=== PATIENT | male | born 1955 | race Caucasian/White ===

== ENCOUNTER 2022-11-29 06:22 | Outpatient (REF) | payer OTHER, SELFPAY ==
[2022-11-29 07:27] LABS: Hematocrit 43.2 % (42.0-52.0); Hemoglobin 14.6 g/dl (14.0-18.0); Mean Corpuscular HGB Conc 33.8 g/dl (31.0-36.0); Mean Corpuscular Hemoglobin 31.2 pg (27.0-33.0); Mean Corpuscular Volume 92.3 fL (80.0-98.0); Mean Platelet Volume 9.2 fL (9.4-12.4); Platelet Count 265 X10*3/uL (160-400); Red Blood Count 4.68 X10*6/uL (4.60-5.80); Red Cell Distribution Width 12.5 % (11.0-16.0); White Blood Count 6.4 X10*3/uL (4.8-10.8)
[2022-11-29 07:46] LABS: Alanine Aminotransferase 13 U/L (0-40); Albumin Level 4.2 g/dL (3.5-5.0); Alkaline Phosphatase 58 U/L (39-117); Anion Gap 11 (12-20); Aspartate Amino Transferase 15 U/L (5-37); Bilirubin Total 0.4 mg/dL (0.0-1.0); Blood Urea Nitrogen 21 mg/dL (9-16); Calcium 9.3 mg/dL (8.4-10.2); Carbon Dioxide 27 mmol/L (22-29); Chloride 109 mmol/L (96-108); Estimated Glomerular Filt Rate > 60; Glucose Fasting 114 mg/dL (60-99); Potassium 4.7 mmol/L (3.3-5.1); Sodium 142 mmol/L (135-145); Total Protein 6.9 g/dL (6.5-8.0)
[2022-11-29 08:03] LABS: Prostate Specific Antigen Scr 3.41 ng/mL (<0.05-4.0)
[2022-11-30 17:48] LABS: HCV Log PCR <1.18 NOT DETECTED Log IU/mL (NOT DETECTED); HepC Viral Load <15 NOT DETECTED IU/mL (NOT DETECTED)
== END 2022-11-29 06:23 | disposition home or self-care (01) ==
LOC: HO.LAB 06:22
PROVIDERS: PCP Physician Assistant; Visit Provider Physician Assistant
DX: Z13.1 Encounter for screening for diabetes mellitus (principal); Z12.5 Encounter for screening for malignant neoplasm of prostate; Z86.19 Personal history of other infectious and parasitic diseases
CPT/HCPCS: 36415; 80053; 84153; 85027; 87522

== ENCOUNTER 2023-02-14 08:36 | Outpatient (AMB) | payer OTHER, SELFPAY ==
--- NOTE | 2023-02-14 08:53 | MHC.PC.OV ---
Vital Signs 02/14/23 08:54 Height 5 ft 11 in Weight 169 lb 6 oz BMI 23.6 BP 120/60 Blood Pressure Location Lt brachial Position Sitting Pulse 60 Pulse Source Pulse Oximeter Pulse Oximetry (%) 97 Oxygen Delivery Method Room Air Intake Visit Reasons: Annual Exam Intake Note: Patient is here today for a physical. 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 policy Accompanied by: Self / Same As Patient Allergies No Known Allergies Allergy (Verified 02/14/23 09:31) Medication List - Last Reconciled 02/14/23 by Joo Reyez PA-C ibuprofen 600 mg PO DAILY Tobacco use date assessed: 02/14/23 Fall risk assessment: No Falls in past year Last assessed Fall Risk: 02/14/23 Dental Screening Dental Screen Date: 02/14/23 Did you have a dental visit in the last 12 months?: No Did you have a dental problem in the last 6 months where you did not have access to dental care?: No Was dental information given to patient?: No HPI Annual Exam HPI Details Patient is a 67-year-old male here today for routine annual physical Has a past medical history of hepatitis C that was treated and has cleared the virus. . Labs--> Most recently noted elevated fasting blood sugar. He did report some dietary indiscretion and has been working on reducing his carbs and sugar in his diet. .. History of hepatitis C: Most recent labs showing undetectable hepatitis-C viral load. Colon cancer screening; Willing to do cologaurd- has Cologuard box at home. Vaccines: Up-to-date with COVID vaccine, UTD pneumonia vaccine, shingles vaccine up-to-date with tetanus vaccine Laboratory Tests 11/29/22 06:48 Hgb 14.6 Creatinine 0.88 Fasting Glucose 114 H PSA Screen 3.41 [facility] Surgical History History of dental surgery History of hernia surgery Family History Sister ESRD (end stage renal disease) Social History Housing: Condominium Alcohol intake: current Alcohol intake frequency: a few times a month Alcohol type: beer Patient Tobacco Use Status: Former Tobacco user Quit Date: 1986 e-Cigarette/Vaping Use: Never Used Second Hand Smoke Exposure: No service: Yes Current occupational status: employed Current occupation: [employer] Cognitive needs: No Hearing needs: No Vision needs: Yes (glasses) Questionnaire Thrive Questionnaire Date Thrive assessed: 08/09/22 CARLITOS-7 AMB Questionnaire CARLITOS-7 Date CARLITOS - 7 assessed: 08/09/22 Source: Developed by Drs. Hua Ibrahim, Stella Shell, Ryne Padgett and colleagues, with an educational pat from [employer]. Review of Systems Const Denies body aches, Denies chills, Denies excessive sweating, Denies fatigue, Denies fever(s) and Denies headache(s) Eyes Denies blurry vision ENT Denies dysphagia, Denies vertigo, Denies dizziness, Denies headache(s), Denies hearing loss and Denies tinnitus Card Denies chest pain, Denies chest pain with activity, Denies syncope, Denies irregular heart rhythm and Denies dyspnea Resp Denies chest congestion, Denies cough, Denies hemoptysis, Denies dyspnea and Denies wheezing GI Denies abdominal pain, Denies melena, Denies hematochezia, Denies coffee ground emesis, Denies dysphagia, Denies diarrhea, Denies nausea and Denies vomiting Denies difficulty urinating, Denies dysuria, Denies urinary frequency, Denies urinary hesitancy and Denies urinary urgency Musc Denies arthralgias, Denies limited range of motion, Denies muscle cramps and Denies muscle weakness Skin/Breast Denies rash and Denies skin ulcer Neuro Denies Abnormal speech present, Denies confusion, Denies vertigo, Denies dizziness, Denies syncope, Denies headache(s), Denies memory loss and Denies seizure-like activity Psych Denies anxiety, Denies confusion, Denies depression, Denies memory loss, Denies panic attacks and Denies paranoia Endo Denies excessive sweating, Denies fatigue, Denies flushing, Denies polydipsia and Denies polyuria Aller/Immun Denies wheezing Physical exam (Primary Care) Vital Signs: Last Vital Signs Pulse 60 02/14/23 08:54 BP 120/60 02/14/23 08:54 Pulse Ox 97 02/14/23 08:54 Oxygen Delivery Method Room Air 02/14/23 08:54 BMI result Body Mass Index 23.6 Tobacco/Smoking Status: Tobacco use Status Tobacco use date assessed 02/14/23 02/14/23 09:11 Patient Tobacco Use Status Former Tobacco user 02/14/23 09:11 e-Cigarette/Vaping Use Never Used 02/14/23 09:11 Thrive Assessment: Date of Thrive Assessment Date Thrive assessed 08/09/22 02/14/23 09:11 Const General: cooperative, comfortable, no acute distress, alert and awake; No confusion Orientation/consciousness: oriented to person, oriented to place, patient oriented x3 and No confusion HENMT Head: Yes normocephalic Ears: external ears normal and TM's normal bilaterally Face and sinus: No sinus tenderness Mouth: Normal oral and palatal mucosa present and tongue normal Teeth and gingiva: dentition normal and gingiva normal Throat: Yes posterior oropharynx normal, Yes tonsils normal and Yes uvula midline Eyes Conjunctivae: conjunctivae normal Sclerae: sclerae normal Pupils: Equal, round and reactive pupils present EOM: EOMs intact bilaterally Direct Ophthalmoscopy: No no photophobia Neck Neck: Yes no lymphadenopathy, No tender and Yes no JVD Thyroid: Thyroid normal Carotids: no bruits Chest Chest palpation & inspection: no tenderness Resp Effort & Inspection: normal respiratory effort, no audible wheezes, not labored and no stridor Auscultation: no crackles, no rales, no rhonchi and no wheezes Cardio Jugular venous distension: no JVD Rate: regular rate, not bradycardic and not tachycardic Rhythm: regular rhythm Bruits: no carotid bruits Peripheral pulses: Peripheral pulses 2+ throughout GI Inspection: Yes normal to inspection, No abdominal wall ecchymosis and No visible herniation Palpation (GI): Soft to palpation, nontender, no guarding, not rigid and No hepatosplenomegaly present Auscultation: normoactive bowel sounds General: Yes no CVA tenderness Back/Spine/Pelvis Back: no CVA tenderness and No back tenderness Cervical Spine: cervical ROM normal Thoracic/Lumbar Spine: thoracic and lumbar spine normal to inspection, straight leg raise negative bilaterally, No thoraco-lumbar ROM limited and No lumbar spinal tenderness Skin Lesions: no lesions Rashes: no rashes Wounds: no wounds Neuro General: oriented to person, oriented to place, patient oriented x3, CN's II-XI intact bilaterally and No confusion Cranial nerves: Yes Equal, round and reactive pupils present and Yes Normal accommodation reflex present Cognition (Neuro): normal cognition Speech: No Abnormal speech present Gait exam (Neuro): Normal gait present Motor exam (neuro): 5/5 motor strength present throughout Extrem Right upper extremity: full ROM; no cyanosis Left upper extremity: full ROM; no cyanosis Right lower extremity: no edema Left lower extremity: no edema Psych Appearance: grossly normal Mental Status: mental status grossly normal Affect: normal affect Attitude: cooperative Thought process: Normal thought process present Assessment and Plan Assessment & Plan (1) Annual physical exam: Code(s): Z00.00 - Encounter for general adult medical examination without abnormal findings (2) History of hepatitis C: Code(s): Z86.19 - Personal history of other infectious and parasitic diseases Plan: Most recent hepatitis C viral load undetectable (3) Colon cancer screening: Code(s): Z12.11 - Encounter for screening for malignant neoplasm of colon Plan: Has Cologuard at home. He promises to do this in near future. (4) Impaired glucose metabolism: Code(s): R73.09 - Other abnormal glucose Plan: Most recent fasting labs showing fasting blood sugar 114. Will be working on low carbohydrate diet. Will recheck fasting sugar and A1c to ensure normal. Orders: Orders Prostate Specific Antigen Scr 02/14/23 R73.09 - Other abnormal glucose, Z12.5 - Encounter for screening for malignant neoplasm of prostate Comprehensive [place]. Panel Fast 02/14/23 R73.09 - Other abnormal glucose Hemoglobin A1c 02/14/23 R73.09 - Other abnormal glucose Coding Level of Care Code Est Pt Prev Care >65y(51927) Diagnoses Annual physical exam Z00.00 History of hepatitis C Z86.19 Colon cancer screening Z12.11 Impaired glucose metabolism R73.09
[2023-02-14 08:54] VITALS: BP 120/60; PULSE 60; O2SAT 97; BMI 23.6
== END 2023-02-14 09:50 | disposition home or self-care (01) ==
LOC: HO.HMGH 08:36
PROVIDERS: PCP Physician Assistant; Visit Provider Physician Assistant
DX: Z00.00 Encounter for general adult medical examination without abnormal findings (principal); Z86.19 Personal history of other infectious and parasitic diseases; Z12.11 Encounter for screening for malignant neoplasm of colon; R73.09 Other abnormal glucose
CPT/HCPCS: 99397

== ENCOUNTER 2024-02-13 06:00 | Outpatient (REF) | payer OTHER, SELFPAY ==
[2024-02-13 08:02] LABS: Estimated Average Glucose 117 mg/dL; Hemoglobin A1C 150.6887 umol/L; Hemoglobin A1c % 5.7 % (<6.0); Total Hemoglobin (HGBA1C) 3833.6537 umol/L
[2024-02-13 08:43] LABS: Alanine Aminotransferase 22 U/L (0-40); Albumin Level 4.4 g/dL (3.5-5.0); Alkaline Phosphatase 67 U/L (39-117); Anion Gap 15 (12-20); Aspartate Amino Transferase 25 U/L (5-37); Blood Urea Nitrogen 17 mg/dL (9-16); Calcium 9.5 mg/dL (8.4-10.2); Carbon Dioxide 26 mmol/L (22-29); Chloride 106 mmol/L (96-108); Estimated Glomerular Filt Rate > 60; Glucose Fasting 98 mg/dL (60-99); Potassium 4.5 mmol/L (3.3-5.1); Sodium 142 mmol/L (135-145)
== END 2024-02-13 06:01 | disposition home or self-care (01) ==
LOC: HO.LAB 06:00
PROVIDERS: PCP Physician Assistant; Visit Provider Physician Assistant
DX: R73.09 Other abnormal glucose (principal); Z12.5 Encounter for screening for malignant neoplasm of prostate
CPT/HCPCS: 36415; 80053; 83036; 84153

== ENCOUNTER 2024-02-20 09:20 | Outpatient (AMB) | payer OTHER, SELFPAY ==
--- NOTE | 2024-02-20 09:29 | MHC.PC.OV ---
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 Accompanied by: Self / Same As Patient Allergies No Known Allergies Allergy (Verified 02/20/24 09:42) Medication List - Last Reconciled 02/20/24 by Joo Reyez PA-C ibuprofen 600 mg PO DAILY Tobacco use date assessed: 02/20/24 Fall risk assessment: No Falls in past year Last assessed Fall Risk: 02/20/24 Dental Screening Dental Screen Date: 02/20/24 Did you have a dental visit in the last 12 months?: Yes Did you have a dental problem in the last 6 months where you did not have access to dental care?: No Was dental information given to patient?: Patient has dentist HPI Annual Exam - see comments HPI Details Patient is a 68-year-old male here today for routine annual physical Has a past medical history of hepatitis C that was treated and has cleared the virus. . .. History of hepatitis C: Most recent labs showing undetectable hepatitis-C viral load. .. Elevated PSA- noted slightly elevated PSA. 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 He denies any urinary symptoms. Will continue to follow. .. Impaired glucose metabolism: Most recent fasting blood sugar improved Colon cancer screening; has not done Cologuard, he is interested in blood test to test for colorectal cancer Vaccines: Up-to-date with COVID vaccine, UTD pneumonia vaccine, shingles vaccine up-to-date with tetanus vaccine Laboratory Tests 11/29/22 02/13/24 06:48 06:10 Creatinine 0.82 Fasting Glucose 114 H 98 PSA Screen 3.41 4.10 H PFS Surgical History History of dental surgery History of hernia surgery Family History Sister ESRD (end stage renal disease) [facility] Alcohol intake: current Alcohol intake frequency: a few times a month Alcohol type: beer Patient Tobacco Use Status: Former Tobacco user e-Cigarette/Vaping Use: Never Used Second Hand Smoke Exposure: No service: Yes Current occupational status: employed Current occupation: [employer] Cognitive needs: No Hearing needs: No Vision needs: Yes (glasses) Questionnaire PHQ-9 Over the last 2 weeks, how often have you been bothered by any of the following problems? 1. Little interest or pleasure in doing things: not at all 2. Feeling down, depressed, or hopeless: not at all 3. Trouble falling or staying asleep, or sleeping too much: not at all 4. Feeling tired or having little energy: not at all 5. Poor appetite or overeating: not at all 6. Feeling bad about yourself - or that you are a failure or have let yourself or your family down: not at all 7. Trouble concentrating on things, such as reading the newspaper or watching television: not at all 8. Moving or speaking so slowly that other people could have noticed. Or the opposite - being so fidgety or restless that you have been moving around a lot more than usual: not at all 9. Thoughts that you would be better off or of hurting yourself in some way: not at all Total score: 0 Depression Screening Interpretation: Negative Depression Screening Done: Yes 60175 - PHQ-9 Billing: Yes Source: Developed by Drs. Hua Ibrahim, Stella Shell, Ryne Padgett and colleagues, with an educational pat from [employer]. Thrive Questionnaire Date Thrive assessed: 02/20/24 I am a: Patient What is your living situation today?: I have a steady place to live Within the past 12 months, did the food you bought not last and you didn't have the money to get more?: Never true Within the past 12 months, did you worry whether your food would run out before you got money to buy more?: Never true Do you have trouble paying for medicines?: No Do you have trouble getting transportation to medical appointments?: No Do you have trouble paying your heating and electricity bill?: No Do you have trouble taking care of your child, family member or friend?: No Do you have trouble with day-to-day activities such as bathing, preparing meals, shopping, managing finances, etc.?: No Are you currently unemployed and looking for a job?: No Are you interested in more education?: Yes Please select the resources that you would like help with: None Currently or been in a relationship where the following occur: No concerns reported THRIVE Score: 0 AUDIT C Alcohol Use Questionnaire (AUDIT-C) 1. How often do you have a drink containing alcohol?: 2-4 times a month 2. How many drinks containing alcohol do you have on a typical day when you are drinking?: 1 or 2 3. How often do you have six or more drinks on one occasion?: Never Total Score: 2 CARLITOS-7 AMB Questionnaire CARLITOS-7 Date CARLITOS - 7 assessed: 02/20/24 Feeling nervous, anxious, or on edge: 0 = Not at all Not being able to stop or control worryin = Not at all Worrying too much about different things: 0 = Not at all Trouble relaxin = Not at all Being so restless that it is hard to sit still: 0 = Not at all Becoming easily annoyed or irritable: 0 = Not at all Feeling afraid as if something awful might happen: 0 = Not at all Total CARLITOS-7 score (0-4 normal; 5-9 mild; 10-14 moderate; 15-21 severe): 0 Source: Developed by Drs. Hua Ibrahim, Stella Shell, Ryne Padgett and colleagues, with an educational pat from [employer]. CARLITOS-7 Assessment Billing CARLITOS-7 Assessment Tool: CARLITOS-7 Assessment 26748 Review of Systems Const Denies body aches, Denies chills, Denies excessive sweating, Denies fatigue, Denies fever(s) and Denies headache(s) Eyes Denies blurry vision ENT Denies dysphagia, Denies vertigo, Denies dizziness, Denies headache(s), Denies hearing loss and Denies tinnitus Card Denies chest pain, Denies chest pain with activity, Denies syncope, Denies irregular heart rhythm and Denies dyspnea Resp Denies chest congestion, Denies cough, Denies hemoptysis, Denies dyspnea and Denies wheezing GI Denies abdominal pain, Denies melena, Denies hematochezia, Denies coffee ground emesis, Denies dysphagia, Denies diarrhea, Denies nausea and Denies vomiting Denies difficulty urinating, Denies dysuria, Denies urinary frequency, Denies urinary hesitancy and Denies urinary urgency Musc Denies arthralgias, Denies limited range of motion, Denies muscle cramps and Denies muscle weakness Skin/Breast Denies rash and Denies skin ulcer Neuro Denies Abnormal speech present, Denies confusion, Denies vertigo, Denies dizziness, Denies syncope, Denies headache(s), Denies memory loss and Denies seizure-like activity Psych Denies anxiety, Denies confusion, Denies depression, Denies memory loss, Denies panic attacks and Denies paranoia Endo Denies excessive sweating, Denies fatigue, Denies flushing, Denies polydipsia and Denies polyuria Aller/Immun Denies wheezing Physical exam (Primary Care) Vital Signs: Last Vital Signs Pulse 74 02/20/24 09:37 BP 134/86 02/20/24 09:37 Pulse Ox 96 02/20/24 09:37 Oxygen Delivery Method Room Air 02/20/24 09:37 BMI result Body Mass Index 24.2 Tobacco/Smoking Status: Tobacco use Status Tobacco use date assessed 02/20/24 02/20/24 09:30 Patient Tobacco Use Status Former Tobacco user 02/20/24 09:30 e-Cigarette/Vaping Use Never Used 02/20/24 09:30 PHQ-9: PHQ-9 Score PHQ-9: Total score 0 02/20/24 09:54 Depression Screening Interpretation: Negative Thrive Assessment: Date of Thrive Assessment Date Thrive assessed 02/20/24 02/20/24 09:30 Currently or been in a relationship where the following occur: No concerns reported Const General: cooperative, comfortable, no acute distress, alert and awake; No confusion Orientation/consciousness: oriented to person, oriented to place, patient oriented x3 and No confusion HENMT Head: Yes normocephalic Ears: external ears normal and TM's normal bilaterally Face and sinus: No sinus tenderness Mouth: Normal oral and palatal mucosa present and tongue normal Teeth and gingiva: dentition normal and gingiva normal Throat: Yes posterior oropharynx normal, Yes tonsils normal and Yes uvula midline Eyes Conjunctivae: conjunctivae normal Sclerae: sclerae normal Pupils: Equal, round and reactive pupils present EOM: EOMs intact bilaterally Direct Ophthalmoscopy: No no photophobia Neck Neck: Yes no lymphadenopathy, No tender and Yes no JVD Thyroid: Thyroid normal Carotids: no bruits Chest Chest palpation & inspection: no tenderness Resp Effort & Inspection: normal respiratory effort, no audible wheezes, not labored and no stridor Auscultation: no crackles, no rales, no rhonchi and no wheezes Cardio Jugular venous distension: no JVD Rate: regular rate, not bradycardic and not tachycardic Rhythm: regular rhythm Bruits: no carotid bruits Peripheral pulses: Peripheral pulses 2+ throughout GI Inspection: Yes normal to inspection, No abdominal wall ecchymosis and No visible herniation Palpation (GI): Soft to palpation, nontender, no guarding, not rigid and No hepatosplenomegaly present Auscultation: normoactive bowel sounds General: Yes no CVA tenderness Back/Spine/Pelvis Back: no CVA tenderness and No back tenderness Cervical Spine: cervical ROM normal Thoracic/Lumbar Spine: thoracic and lumbar spine normal to inspection, straight leg raise negative bilaterally, No thoraco-lumbar ROM limited and No lumbar spinal tenderness Skin Lesions: no lesions Rashes: no rashes Wounds: no wounds Neuro General: oriented to person, oriented to place, patient oriented x3, CN's II-XI intact bilaterally and No confusion Cranial nerves: Yes Equal, round and reactive pupils present and Yes Normal accommodation reflex present Cognition (Neuro): normal cognition Speech: No Abnormal speech present Gait exam (Neuro): Normal gait present Motor exam (neuro): 5/5 motor strength present throughout Extrem Right upper extremity: full ROM; no cyanosis Left upper extremity: full ROM; no cyanosis Right lower extremity: no edema Left lower extremity: no edema Psych Appearance: grossly normal Mental Status: mental status grossly normal Affect: normal affect Attitude: cooperative Thought process: Normal thought process present Office Procedures Flu Questionnaire Does the patient have a severe egg allergy?: No Immunizations Fluarix Triv [id number] (PF) 45 mcg (15 mcg x 3)/0.5 mL IM syringe Performing Provider: Joo Reyez PA-C [place] [facility] [place] [facility] [place] [facility] Documented (not given) by: TIMMY Valiente on 02/20/24 09:38 Reason Not Given: Received Previously Coding Level of Care Code Est Pt Prev Care >65y(06600) Diagnoses Annual physical exam Z00.00 Impaired glucose metabolism R73.09 Colon cancer screening Z12.11 Elevated PSA R97.20 History of hepatitis C Z86.19 Additional Codes CARLITOS-7 Assessment Billing - CARLITOS-7 Assessment Tool: CARLITOS-7 Assessment 46918 ([id number]) PHQ-9 - 19907 - PHQ-9 Billing: Yes ([id number]) Assessment & Plan Assessment & Plan (1) Annual physical exam: Code(s): Z00.00 - Encounter for general adult medical examination without abnormal findings Category: Medical Plan: As per HPI (2) Impaired glucose metabolism: Code(s): R73.09 - Other abnormal glucose Category: Medical Plan: Patient's most recent fasting blood sugar stable. A1c has been normal. Patient will continue working on lifestyle and dietary modifications. (3) Colon cancer screening: Code(s): Z12.11 - Encounter for screening for malignant neoplasm of colon Category: Medical Plan: Patient interested in getting a blood test to test for colorectal cancer screening. He adamantly declines any colonoscopies due to fear of complications. (4) Elevated PSA: Code(s): R97.20 - Elevated prostate specific antigen [PSA] Category: Medical Plan: Noted slightly elevated PSA. He denies any nighttime awakenings to urinate or weak urinary stream. Will continue to follow PSA. (5) History of hepatitis C: Code(s): Z86.19 - Personal history of other infectious and parasitic diseases Category: Medical Plan: Patient's history of hepatitis-C infection that was treated. Most recent labs with normal liver enzymes. Will check viral loading in Orders: Orders Prostate Specific Antigen Scr Today R97.20 - Elevated prostate specific antigen [PSA], Z12.5 - Encounter for screening for malignant neoplasm of prostate Hepatitis C Viral Load Today Z86.19 - Personal history of other infectious and parasitic diseases Influenza [id number] Immunization Today Z23 - Encounter for immunization Hemoglobin A1c Today R73.09 - Other abnormal glucose Comprehensive [place]. Panel Fast Today R73.09 - Other abnormal glucose
[2024-02-20 09:37] VITALS: BP 134/86; PULSE 74; O2SAT 96; BMI 24.2
== END 2024-02-20 10:10 | disposition home or self-care (01) ==
PROVIDERS: PCP Physician Assistant; Visit Provider Physician Assistant
DX: Z00.00 Encounter for general adult medical examination without abnormal findings (principal); R73.09 Other abnormal glucose; Z12.11 Encounter for screening for malignant neoplasm of colon; R97.20 Elevated prostate specific antigen [PSA]; Z86.19 Personal history of other infectious and parasitic diseases; Z23 Encounter for immunization

== ENCOUNTER → 2024-02-20 09:20 | Outpatient (BNVA) | payer OTHER, SELFPAY | PROVIDERS: PCP Physician Assistant; Visit Provider Physician Assistant | DX: Z00.00 Encounter for general adult medical examination without abnormal findings (principal); R73.09 Other abnormal glucose; R97.20 Elevated prostate specific antigen [PSA]; Z86.19 Personal history of other infectious and parasitic diseases | CPT/HCPCS: 90471; 96127 ==

== ENCOUNTER 2025-02-15 06:01 | Outpatient (REF) | payer MEDICARE, SELFPAY ==
--- OUTSIDE RECORDS SUMMARY | 2025-02-15 06:06 | XMS_ITS | Patient Health Record ---
Author Organization [facility] Address [address] [place] [address] Care Team Providers Care Ssis Ssrs Developer Name Role Phone Celeste(inactive) Yonatan RAMOS Primary Care Provider U lea Mullen JrHans Unavailable [phone] Reason For Referral No Information Medications Medication SIG (Take, Route, Fr equency, Duration) Notes Start Date End Date Status Ibuprofen 600 MG 1 tablet as needed Orally every day Active Problems Problem Type SNOMED Code ICD Code Onset Dates Problem Status W/U Status Risk Notes Problem Colon cancer screening (496072919) Colon cancer screening (Z12.11) Active confirmed Problem Chronic hepatitis C (140370845) Chronic hepatitis C without hepatic coma (B18.2) Active confirmed Plan Of Treatment Pending Test Test Name Order Date LIVER PROFILE 10/06/2015 LIVER PROFILE 07/24/2015 CBC w DIFF 10/06/2015 CBC w/o DIFF 07/24/2015 HEPATITIS C VIRAL LOAD 07/23/2014 HEPATITIS C VIRAL LOAD 10/06/2015 HEPATITIS C VIRAL LOAD 07/24/2015 Future Test Test Name Order Date LIVER PROFILE 12/29/2011 CBC w DIFF 12/29/2011 PROTHROMBIN TIME (PT, INR) 12/29/2011 Insurance Providers Payer Name Payer Address Payer Phone Subscriber Number Group Number Insured Name Patient Relationship to Insured Coverage Start Date Coverage End Date [facility] [address] [facility] [phone] [id number] SUZANNE SCHMID Self - patient is the insured Medical (General) History Medical History History ICD Code chronic hepatitis c degenerative joint disease Denies [place],DM,CVA,Lung disease,renal dise ase Surgical History Surgery Date(Month/Year) Hernia repair as a child oral surgery
[2025-02-15 07:59] LABS: Alanine Aminotransferase 24 U/L (0-40); Albumin Level 4.7 g/dL (3.5-5.0); Alkaline Phosphatase 72 U/L (39-117); Anion Gap 12 (12-20); Aspartate Amino Transferase 24 U/L (5-37); Blood Urea Nitrogen 33 mg/dL (9-16); Calcium 9.3 mg/dL (8.4-10.2); Carbon Dioxide 26 mmol/L (22-29); Chloride 108 mmol/L (96-108); Estimated Glomerular Filt Rate > 60; Potassium 4.5 mmol/L (3.3-5.1); Sodium 141 mmol/L (135-145); Total Protein 7.3 g/dL (6.5-8.0)
[2025-02-18 19:52] LABS: HCV Log PCR <1.18 NOT DETECTED Log IU/mL (NOT DETECTED); HepC Viral Load <15 NOT DETECTED IU/mL (NOT DETECTED)
== END 2025-02-15 06:02 | disposition home or self-care (01) ==
LOC: HO.LAB 06:01
PROVIDERS: PCP Physician Assistant; Visit Provider Physician Assistant
DX: Z12.5 Encounter for screening for malignant neoplasm of prostate (principal); Z11.59 Encounter for screening for other viral diseases; R97.20 Elevated prostate specific antigen [PSA]; R73.09 Other abnormal glucose; Z86.19 Personal history of other infectious and parasitic diseases
CPT/HCPCS: 36415; 80053; 83036; 84153; 87522

== ENCOUNTER 2025-02-25 09:22 | Outpatient (AMB) | payer MEDICARE, SELFPAY ==
--- NOTE | 2025-02-25 09:33 | AM.OFFVISMDC ---
Intake Vital Signs 02/25/25 09:37 Height 5 ft 11 in Weight 181 lb 6 oz BMI 25.3 BP 120/70 Blood Pressure Location Lt brachial Position Sitting Pulse 67 Pulse Source Pulse Oximeter Temp 96.9 F Temp Source Temporal Artery Scan Pulse Oximetry (%) 97 Oxygen Delivery Method Room Air Intake Visit Reasons: AWV Intake Note: Patient is here for an Annual Wellness Visit. Shirt Presser Required: No Certified Paralegal: Certified Paralegal offered & declined Accompanied by: Self / Same As Patient Allergies No Known Allergies Allergy (Verified 02/25/25 11:18) Medication List - Last Reconciled 02/25/25 by Joo Reyez PA-C No Known Home Meds HPI AWV HPI Details Patient is a 69-year-old male here today for routine annual wellness visit. Wilbert Has a past medical history of impaired glucose metabolism, hepatitis C that was treated and has cleared the virus. Today we discussed patient's [place] of care and end of life planning. Also his comprehensive care plan was discussed and scanned into patient's documents. Colon cancer screening; has not done Cologuard, he is interested in blood test to test for colorectal cancer Vaccines: Up-to-date with COVID vaccine, UTD pneumonia vaccine, shingles vaccine up-to-date with tetanus vaccine Laboratory Tests 11/29/22 02/13/24 02/15/25 06:48 06:10 06:13 BUN 17 H 33 H Creatinine 0.82 0.92 Hemoglobin A1c % 5.7 5.7 PSA Screen 3.41 4.10 H 2.94 Hep C Viral Load <15 NOT DETECTED Hep C Viral Load L og <1.18 NOT DETECTE D HPI Comments History of Present Illness Details reviewed past medical history- yes reviewed surgical / hospitalization history- yes reviewed current medications- yes reviewed family history- yes home safety throw rugs? grab bars? raised toilet seat? working smoke detectors? activities of daily living difficulty bathing or showering? difficulty dressing? difficulty using the toilet? difficulty getting in and out of bed? difficulty walking? receives help from other person's with any of the above tasks? instrumental activities of daily living uses telephone - gets to place out of walking distance- go shopping for groceries- repairs own meals- does own minor home maintenance- does own laundry- does own housework- manages own money- currently takes medication- end of life planning discussed advanced directives- yes advanced directives on file? discussed wishes expressed in advanced directives. fall risk have you had any falls with injuries in the past year? have you had 2 or more falls in the past year? fall risk assessment: [facility] Surgical History History of dental surgery History of hernia surgery Family History Sister ESRD (end stage renal disease) Social History [facility] Alcohol intake: current Alcohol intake frequency: a few times a month Alcohol type: beer Patient Tobacco Use Status: Former Tobacco user e-Cigarette/Vaping Use: Never Used Second Hand Smoke Exposure: No service: Yes Current occupational status: employed Current occupation: [employer] Cognitive needs: No Hearing needs: No Vision needs: Yes (glasses) Questionnaire Medicare Wellness Checkup [age] 65-71 What gender do you identify with?: male During the past 4 weeks, how much have you been bothered by emotional problems such as feeling anxious, depressed, irritable, sad or downhearted, and blue?: not at all During the past 4 weeks, has your physical & emotional health limited your social activities with family, friends, neighbors, or groups?: not at all During the past 4 weeks, how much bodily pain have you generally had?: no pain During the past 4 weeks, was someone available to help you if you needed & wanted help?: yes, as much as I wanted During the past 4 weeks, what was the hardest physical activity you could do for at least 2 minutes?: very heavy Can you get to places out of walking distance without help? (For eg., can you travel alone on buses, taxis or drive your car?): Yes Can you go shopping for groceries or clothes without someone's help?: Yes Can you prepare your own meals?: Yes Can you do your housework without help?: Yes Because of any health problems, do you need the help of another person with your personal care needs such as eating, bathing, dressing or getting around the house?: No Can you handle your own money without help?: Yes During the past 4 weeks, how would you rate your health in general?: excellent During the past 4 weeks how have things been going for you?: very well; could hardly better Are you having difficulties driving your car?: no Do you always fasten your seat belt when you are in a car?: yes, usually During past 4 weeks, have you been bothered by the following: never: Falling or dizzy when standing up, Sexual problems?, Trouble eating well?, Teeth or denture problems?, Problems using the telephone? and Tiredness or fatigue? Have you fallen 2 or more times in the past year?: No Are you afraid of falling?: No Are you a smoker?: no During the past 4 weeks, how many drinks of wine, beer, or other alcoholic beverages did you have?: 2-5 drinks per week Do you exercise for about 20 minutes 3 or more times a week?: yes, all the time Have you been given information to help with the following?: no: Hazards in your house that might hurt you? and no: Keeping track of your medications? How often do you have trouble taking medicines the way you have been told to take them?: I do not have to take medicine How confident are you that you can control & manage most of your health problems?: very confident What is your race?: White Activity of Daily Living Bathing - sponge bath, tub bath or shower: receives no assistance (gets in/out by self, if usual bathing means Dressing - getting clothes from closets & drawers, including inner/outer garments & fasteners.: gets clothes & gets completely dressed without help Toileting - going to the 'toilet room' for urine/bowel elimination & cleaning self/arranging clothes: goes to toilet room, cleans self, arranges clothes without help Transfer: moves in & out of bed and chair without help (may use support object) Continence: controls urination/bowel movements completely by self Feeding: feeds self without help Total Score: 0 Information obtained from: patient Using telephone: independent Traveling: independent Shopping: independent Preparing meals: independent Housework: independent Taking medicine: independent Managing money: independent PHQ-9 Over the last 2 weeks, how often have you been bothered by any of the following problems? 1. Little interest or pleasure in doing things: not at all 2. Feeling down, depressed, or hopeless: not at all 3. Trouble falling or staying asleep, or sleeping too much: not at all 4. Feeling tired or having little energy: not at all 5. Poor appetite or overeating: not at all 6. Feeling bad about yourself - or that you are a failure or have let yourself or your family down: not at all 7. Trouble concentrating on things, such as reading the newspaper or watching television: not at all 8. Moving or speaking so slowly that other people could have noticed. Or the opposite - being so fidgety or restless that you have been moving around a lot more than usual: not at all 9. Thoughts that you would be better off or of hurting yourself in some way: not at all Total score: 0 Depression Screening Interpretation: Negative Depression Screening Done: Yes 81359 - PHQ-9 Billing: Patient declined-do not bill Source: Developed by Drs. Hua Ibrahim, Stella Shell, Ryne Padgett and colleagues, with an educational pat from [employer]. Thrive Questionnaire Date Thrive assessed: 02/25/25 I am a: Patient What is your living situation today?: I have a steady place to live Within the past 12 months, did the food you bought not last and you didn't have the money to get more?: Never true Within the past 12 months, did you worry whether your food would run out before you got money to buy more?: Never true Do you have trouble paying for medicines?: No Do you have trouble getting transportation to medical appointments?: No Do you have trouble paying your heating and electricity bill?: No Do you have trouble taking care of your child, family member or friend?: No Do you have trouble with day-to-day activities such as bathing, preparing meals, shopping, managing finances, etc.?: No Are you currently unemployed and looking for a job?: No Are you interested in more education?: No Please select the resources that you would like help with: None Currently or been in a relationship where the following occur: No concerns reported THRIVE Score: 0 CARLITOS-7 AMB Questionnaire CARLITOS-7 Date CARLITOS - 7 assessed: 02/25/25 Feeling nervous, anxious, or on edge: 0 = Not at all Not being able to stop or control worryin = Not at all Worrying too much about different things: 0 = Not at all Trouble relaxin = Not at all Being so restless that it is hard to sit still: 0 = Not at all Becoming easily annoyed or irritable: 0 = Not at all Feeling afraid as if something awful might happen: 0 = Not at all Total CARLITOS-7 score (0-4 normal; 5-9 mild; 10-14 moderate; 15-21 severe): 0 Source: Developed by Drs. Hua Ibrahim, Stella Shell, Ryne Padgett and colleagues, with an educational pat from [employer]. AUDIT C Alcohol Use Questionnaire (AUDIT-C) 1. How often do you have a drink containing alcohol?: Monthly or less 2. How many drinks containing alcohol do you have on a typical day when you are drinking?: 1 or 2 3. How often do you have six or more drinks on one occasion?: Never Total Score: 1 Physical Exam Vital Signs: Last Vital Signs Temp 96.9 F 02/25/25 09:37 Oxygen Delivery Method Room Air 02/25/25 09:37 BMI result Body Mass Index 25.3 HEENT Other: hearing screening whisper test- passed Eyes Other: vision screening- 2020 OS OD 0 you using corrective lenses Other: urinary incontinence? no Neuro Other: balance Romberg- normal tandem walk test- able walk-in turned test- able rise from sit to stand- within 2 seconds Assessment & Plan Assessment & Plan (1) Medicare annual wellness visit, initial: Code(s): Z00.00 - Encounter for general adult medical examination without abnormal findings Plan: As per [facility] Orders: Orders Comprehensive [place]. Panel Fast Today R73.09 - Other abnormal glucose Complete Blood Count no Diff Today R73.09 - Other abnormal glucose Hemoglobin A1c Today R73.09 - Other abnormal glucose Prostate Specific Antigen Scr Today R97.20 - Elevated prostate specific antigen [PSA], Z12.5 - Encounter for screening for malignant neoplasm of prostate Quality Reporting (2020) Depression/Bipolar (159/160/161/177) PHQ-9: Total score: 0 Coding Level of Care Code Medicare First (G0438) Diagnoses Medicare annual wellness visit, initial Z00.00 CPT Codes Advance Care Planning - Time spent: 1-15 minutes, not on file ([id number]) Advance Care Planning Advance Care Planning discussion: Exists, not on file Date of discussion: 02/25/25 Forms completed: JERONIMO Time spent: 1-15 minutes, not on file Actual minutes spent: 2
[2025-02-25 09:37] VITALS: BP 120/70; PULSE 67; TEMP 36.1; O2SAT 97; BMI 25.3
--- OUTSIDE RECORDS SUMMARY | 2025-02-25 17:50 | XMS_ITS | Patient Health Record ---
Author Organization 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 former smoker quit 1986 Problems Problem Type SNOMED Code ICD Code Onset Dates Problem Status W/U Status Risk Notes Problem Colon cancer screening (143090627) Colon cancer screening (Z12.11) Active confirmed Problem Chronic hepatitis C (328903007) Chronic hepatitis C without hepatic coma (B18.2) Active confirmed Plan Of Treatment Pending Test Test Name Order Date LIVER PROFILE 07/24/2015 LIVER PROFILE 10/06/2015 CBC w DIFF 10/06/2015 CBC w/o DIFF 07/24/2015 HEPATITIS C VIRAL LOAD 10/06/2015 HEPATITIS C VIRAL LOAD 07/23/2014 HEPATITIS C VIRAL LOAD 07/24/2015 Future Test Test Name Order Date LIVER PROFILE 12/29/2011 CBC w DIFF 12/29/2011 PROTHROMBIN TIME (PT, INR) 12/29/2011 Insurance Providers Payer Name Payer Address Payer Phone Subscriber Number Group Number Insured Name Patient Relationship to Insured Coverage Start Date Coverage End Date [facility] [address] [place] [phone] [id number] SUZANNE SCHMID Self - patient is the insured Medical (General) History Medical History History ICD Code chronic hepatitis c degenerative joint disease Denies AR,DM,CVA,Lung disease,renal dise ase Surgical History Surgery Date(Month/Year) Hernia repair as a child oral surgery
== END 2025-02-25 10:17 | disposition home or self-care (01) ==
LOC: HO.HMCH 09:23
PROVIDERS: PCP Physician Assistant; Visit Provider Physician Assistant
DX: Z00.00 Encounter for general adult medical examination without abnormal findings (principal)